=== PATIENT | female | born 1985 | race Caucasian/White ===

== ENCOUNTER 2017-02-24 23:59 | Emergency (ER) | payer MEDICAID ==
[2017-02-25] MEDS ORDERED: ONDANSETRON 4 MG/2 ML VIAL ONE (00:02)
--- NOTE | 2017-02-25 00:04 | EDPHY ---
H & P HPI/ROS: Chief Complaint: Alcohol intoxication, vomiting HPI: 32-year-old female who was found at the [facility] intoxicated. Patient has been vomiting. Is unable to ambulate on their own. Patient brought in by EMS for further evaluation. No obvious signs of trauma per EMS. Patient is declining to answer any other questions at this time. ROS: 10 point Review of Systems is negative except as noted in the HPI. PMH: Amber Danlos syndrome Medications: None Allergies: None Social History: Positive for alcohol Family History: non-contributory Physical Exam: Gen: Somnolent, responds to painful stimuli, maintaining airway, smells of alcohol and emesis HEENT: Atraumatic Nose: no epistaxis or deformity Eyes: PERRLA, EOMI Mouth: Moist mucosa Neck: Supple, no step-offs or deformity Chest: Atraumatic, lungs clear to auscultation Heart: S1, S2 normal, no murmur Abd: Soft, non-tender, no guarding Back: Atraumatic Ext: no edema, atraumatic Skin: no rash Neuro: Sensation grossly intact, Strength 5/5 in bilateral upper and lower extremities Constitutional: Initial Vital Signs Temperature (C) 36.7 C 02/25/17 00:00 Heart Rate 94 02/25/17 00:00 Respiratory Rate 16 02/25/17 00:00 Blood Pressure 123/71 H 02/25/17 00:00 O2 Sat (%) 95 02/25/17 00:00 O2 Delivery Mode Room Air Allergies/Adverse Reactions: No Known Allergies Allergy (Unverified 02/25/17 00:06) Home Medications: Medication Instructions Recorded Unobtainable 02/25/17 Medical Decision Making ED Course/Re-evaluation: Patient is now awake and appropriate. Ambulating unassisted to the bathroom. No current complaints. Medically cleared for discharge. - Data Points Medications Given: Discontinued Medications Sodium Chloride (Ns) 1,000 mls @ 0 mls/hr IV ONCE ONE PRN Reason: Wide Open Stop: 02/25/17 00:08 Last Admin: 02/25/17 00:08 Dose: 1,000 mls Ondansetron HCl (Zofran) 4 mg IVP EDNOW ONE Stop: 02/25/17 00:08 Last Admin: 02/25/17 00:08 Dose: 4 mg Departure - Departure Disposition: Home, Routine, Self-Care Clinical Impression: Alcoholic intoxication Condition: Good Instructions: Alcohol Intoxication (ED) Additional Instructions: Please avoid binge drinking alcohol. Referrals: Patient,NotPresent [Primary Care Provider] - As per Instructions
[2017-02-25] MEDS ORDERED: NS 1,000 ML IV ONE (00:07)
[2017-02-25] MEDS ORDERED: ONDANSETRON 4 MG/2 ML VIAL IVP ONE (00:07)
[2017-02-25 00:11] VITALS: RESP 16
[2017-02-25 02:30] VITALS: BP 115/75; PULSE 74; TEMP 98.2; O2SAT 96
== END 2017-02-25 02:30 | disposition home or self-care (01) ==
DX: F10.129 Alcohol abuse with intoxication, unspecified (principal)
CPT/HCPCS: 96374; J2405